=== PATIENT | male | born 1965 | race Caucasian/White ===

== ENCOUNTER → 2019-09-05 | Outpatient (CLI) | payer OTHER ==
[~2019-09-05] MED LIST: CLARITIN10 MG PO; COLACE100 MG PO; NORCO 5-325 TA1 EACH PO; ZOFRAN4 MG PO
== END | disposition home or self-care (01) ==
LOC: COVID19 00:11
DX: Z01.818 Encounter for other preprocedural examination (principal); Z11.59 Encounter for screening for other viral diseases

== ENCOUNTER → 2019-09-11 | Day surgery (SDC) | payer OTHER ==
[2019-09-05 13:29] VITALS: BP 153/90
[~2019-09-11] VITALS: Ht 170.1 cm; Wt 94.8 kg
[2019-09-11 11:00] VITALS: BP 136/61
[2019-09-11 13:49] VITALS: BP 180/95
[2019-09-11 14:04] VITALS: BP 162/87
[2019-09-11 14:19] VITALS: BP 150/82
[2019-09-11 14:34] VITALS: BP 152/88
[2019-09-11 14:49] VITALS: BP 147/85
== END | disposition home or self-care (01) ==
LOC: SDC 09-05 14:00
DX: K46.0 Unspecified abdominal hernia with obstruction, without gangrene (principal); Z86.010 Personal history of colon polyps; Z98.890 Other specified postprocedural states; Z79.899 Other long term (current) drug therapy

== ENCOUNTER → 2019-11-24 | Outpatient (CLI) | payer OTHER | END | disposition home or self-care (01) | LOC: COVID19 06:36 | PROVIDERS: ATTEND Surgery | DX: Z01.812 Encounter for preprocedural laboratory examination (principal); Z20.828 Contact with and (suspected) exposure to other viral communicable diseases ==

== ENCOUNTER → 2019-11-27 | Day surgery (SDC) | payer OTHER ==
[~2019-11-27] VITALS: Ht 170.1 cm; Wt 95.7 kg
[2019-11-27 07:24] VITALS: BP 115/82
[2019-11-27 08:24] VITALS: BP 117/73
[2019-11-27 08:37] VITALS: BP 106/67
[2019-11-27 08:55] VITALS: BP 128/73
== END | disposition home or self-care (01) ==
LOC: SDC 10-17 08:45
PROVIDERS: ATTEND Surgery
DX: Z12.11 Encounter for screening for malignant neoplasm of colon (principal); K57.30 Diverticulosis of large intestine without perforation or abscess without bleeding; E66.9 Obesity, unspecified; Z68.33 Body mass index [BMI] 33.0-33.9, adult; Z98.890 Other specified postprocedural states